=== PATIENT | male | born 1945 ===

== ENCOUNTER 2017-08-19 08:10 | Outpatient (CLI) | payer OTHER ==
[~2017-08-19 08:10] MED LIST: ACTOS45 MG PO; EFFEXOR XR75 MG PO; ENALAPRIL MALEAT5 MG PO; FORTAMET1000 MG; FUROSEMIDE40 MG PO; SYNTHROID137 MCG PO; VYTORIN 10-40 M1 TAB PO
== END 2017-08-19 08:15 | disposition home or self-care (01) ==
LOC: SONOGRAMA 08:10 → MAMO-SONO 08:15 → SONOGRAMA 08:15
DX: R10.9 Unspecified abdominal pain (principal)

== ENCOUNTER 2017-08-19 08:24 | Outpatient (CLI) | payer OTHER | END 2017-08-19 08:30 | disposition home or self-care (01) | LOC: RX STUDY 08:24 | DX: R10.9 Unspecified abdominal pain (principal) ==

== ENCOUNTER 2017-09-07 08:57 | Outpatient (CLI) | payer OTHER | END 2017-09-07 09:18 | disposition home or self-care (01) | LOC: NUCLEAR 08:57 | DX: K81.1 Chronic cholecystitis (principal) | CPT/HCPCS: 78227; A9537; J2805 ==